=== PATIENT | female | born 1995 | race African-American/Black ===

== ENCOUNTER 2016-06-27 21:03 | Observation (INO) | payer OTHER ==
[2016-03-07 14:57] VITALS: BP 117/69
[~2016-06-27 21:03] MED LIST: CEPH-264 PO; PRED20TA PO
[2016-06-27 21:36] LABS: BILIRUBIN,URINE NEGATIVE (NEG); GLUCOSE,URINE NEGATIVE (NEG); NITRITE,URINE NEGATIVE (NEG); PROTEIN,URINE NEGATIVE (NEG-TRACE)
[2016-06-27 21:41] LABS: BARBITURATES NEG (NEG); BENZODIAZEPINES NEG (NEG); CANNABINOIDS NEG (NEG); COCAINE NEG (NEG); ETHANOL, URINE NEG (NEG); METHADONE NEG (NEG); OPIATES NEG (NEG); PHENCYCLIDINE NEG (NEG)
[2016-06-27 21:42] LABS: BACTERIA,URINE FEW /HPF (0-FEW); RBC,URINE 0 /HPF (0-2); SQUAMOUS EPITHELIAL CELL,UR MOD /LPF; YEAST,URINE PRESENT /HPF
== END 2016-06-27 23:29 | disposition home or self-care (01) ==
LOC: 3 SO LND 21:03
PROVIDERS: ADMIT Obstetrics & Gynecology; ATTEND Obstetrics & Gynecology
DX: O26.893 Other specified pregnancy related conditions, third trimester (principal); N89.8 Other specified noninflammatory disorders of vagina; R10.2 Pelvic and perineal pain; Z3A.32 32 weeks gestation of pregnancy
CPT/HCPCS: 81001; 87086; G0378; G0379; G0481

== ENCOUNTER → 2017-10-29 | Outpatient (CLI) | payer OTHER | END | disposition home or self-care (01) | LOC: US 09:20 | DX: Z36.9 Encounter for antenatal screening, unspecified (principal); O26.842 Uterine size-date discrepancy, second trimester; N91.2 Amenorrhea, unspecified; Z3A.23 23 weeks gestation of pregnancy | CPT/HCPCS: 76805 ==

== ENCOUNTER 2017-12-23 12:16 | Emergency (ER) | payer OTHER ==
[2017-12-23 13:13] LABS: BILIRUBIN,URINE NEGATIVE (NEG); CLARITY,URINE CLEAR; COLOR,URINE YELLOW; GLUCOSE,URINE NEGATIVE (NEG); NITRITE,URINE NEGATIVE (NEG); PH,URINE 6.5; PROTEIN,URINE NEGATIVE (NEG-TRACE)
[2017-12-23 13:35] LABS: BACTERIA,URINE FEW /HPF (0-FEW); SQUAMOUS EPITHELIAL CELL,UR FEW /LPF
[2017-12-27 08:48] LABS: URINE HCG POC HCG POSITIVE (Negative)
== END 2017-12-23 13:05 | disposition short-term general hospital (02) ==
LOC: ER 13:05
DX: R10.9 Unspecified abdominal pain (principal)
CPT/HCPCS: 81001; 81025; 99283; 99285

== ENCOUNTER 2017-12-23 13:06 | Observation (INO) | payer OTHER ==
[2017-12-23] MEDS ORDERED: IV RINGERS,LACTATED 1000ML 1,000 ML IV (13:42)
[2017-12-23 14:37] LABS: BILIRUBIN,URINE NEGATIVE (NEG); CLARITY,URINE CLEAR; COLOR,URINE YELLOW; GLUCOSE,URINE NEGATIVE (NEG); NITRITE,URINE NEGATIVE (NEG); PH,URINE 6.5; PROTEIN,URINE NEGATIVE (NEG-TRACE)
[2017-12-23 14:56] LABS: BACTERIA,URINE MODERATE /HPF (0-FEW); RBC,URINE 0 /HPF (0-2); SQUAMOUS EPITHELIAL CELL,UR MOD /LPF
[2017-12-23 14:57] LABS: YEAST,URINE PRESENT /HPF
== END 2017-12-23 14:55 | disposition home or self-care (01) ==
LOC: 3 SO LND 13:06
DX: O26.893 Other specified pregnancy related conditions, third trimester (principal); R10.9 Unspecified abdominal pain; Z3A.30 30 weeks gestation of pregnancy
CPT/HCPCS: 81001; 87086; G0378; G0379

== ENCOUNTER 2018-02-06 03:21 | Emergency (ER) | payer OTHER ==
[~2018-02-06] VITALS: Ht 157.5 cm; Wt 101.2 kg
--- NOTE | 2018-02-06 03:45 | PHYS DOC ---
Past Medical History Past Medical History: Sickle Cell Disease Past Surgical History: No Surgical History Alcohol Use: None Drug Use: None Adult General Chief Complaint Chief Complaint: CHEST PAIN HPI HPI Patient is a 22 year old female brought in by ambulance with pleuritic central chest pain. She was 36 weeks this woke her from sleep approximately 1 hour prior to arrival. in fact she said it woke her up at 219 am She describes central chest pain sharp worse with deep breathing and then she said she felt it radiates both to both sides of her chest into her rib area and then into her back and she was trying to find a comfortable position but rolling over seemed to make it worse touching the area seemed to make them worse. So she called 911 and she then ambulated into the emergency room with the paramedics. Her mother thought she was having a heart attack. Review of Systems Review of Systems Constitutional: Denies fever or chills [] Eyes: Denies change in visual acuity, redness, or eye pain [] HENT: Denies nasal congestion or sore throat [] Respiratory: Thorax mild shortness of breath feels like "gulping" for air Cardiovascular: No additional information not addressed in HPI [] GI: neg for abdo pain or vomiting. neg for vaginal discahrge or bleeding. neg for cramping. Musculoskeletal:positive for back pain Integument: Denies rash or skin lesions [] Neurologic: Denies headache, focal weakness or sensory changes [] Endocrine: Denies polyuria or polydipsia [] All other systems were reviewed and found to be within normal limits, except as documented in this note. Current Medications Current Medications Current Medications Medications (Trade) Dose Ordered Sig/Dominique Start Time Stop Time Status Last Admin Dose Admin Acetaminophen (Tylenol) 1,000 mg 1X ONCE 02/06/18 04:00 02/06/18 04:01 DC 02/06/18 04:11 1,000 MG Multi-Ingredient Mouthwash/Gargle (Gi Cocktail) 20 ml 1X ONCE 02/06/18 04:00 02/06/18 04:01 DC 02/06/18 04:11 20 ML Allergies Allergies Allergies Coded Allergies Type Severity Reaction Last Updated Verified No Known Drug Allergies 07/01/14 No Physical Exam Physical Exam Constitutional: Well developed, well nourished, mild distress, non-toxic appearance. [] HENT: Normocephalic, atraumatic, bilateral external ears normal, oropharynx moist, no oral exudates, nose normal. [] Eyes: PERRLA, EOMI, conjunctiva normal, no discharge. [] Neck: Normal range of motion, no tenderness, supple, no stridor. [] Cardiovascular:Heart rate regular rhythm, no murmur [] Lungs & Thorax: Bilateral breath sounds clear to auscultation [] there is reproducible chest wall tenderness to palpation in the anterior sternal area. Abdomen: Bowel sounds normal,gravuid but nontender Skin: Warm, dry, no erythema, no rash. [] Back: there is mid upper thoracic reproducible ttp noted in the paraspinous area bilaterally patient winces when touched. Extremities: No tenderness, no cyanosis, no clubbing, ROM intact, no edema. no calf ttp or swelling noted. Neurologic: Alert and oriented X 3, normal motor function, normal sensory function, no focal deficits noted. [] Psychologic: Affect normal, judgement normal, mood normal. [] Current Patient Data Vital Signs Vital Signs Date Time Temp Pulse Resp B/P (MAP) Pulse Ox O2 Delivery O2 Flow Rate FiO2 02/06/18 04:00 79 20 126/64 (84) 100 Room Air 02/06/18 03:21 98.5 98.5 Lab Values Laboratory Tests Test 02/06/18 03:55 White Blood Count 10.4 x10^3/uL (4.0-11.0) Red Blood Count 4.38 x10^6/uL (3.50-5.40) Hemoglobin 9.5 g/dL (12.0-15.5) L Hematocrit 28.8 % (36.0-47.0) L Mean Corpuscular Volume 66 fL (79-100) L Mean Corpuscular Hemoglobin 22 pg (25-35) L Mean Corpuscular Hemoglobin Concent 33 g/dL (31-37) Red Cell Distribution Width 14.9 % (11.5-14.5) H Platelet Count 166 x10^3/uL (140-400) Neutrophils (%) (Auto) 69 % (31-73) Lymphocytes (%) (Auto) 20 % (24-48) L Monocytes (%) (Auto) 9 % (0-9) Eosinophils (%) (Auto) 1 % (0-3) Basophils (%) (Auto) 1 % (0-3) Neutrophils # (Auto) 7.2 x10^3uL (1.8-7.7) Lymphocytes # (Auto) 2.1 x10^3/uL (1.0-4.8) Monocytes # (Auto) 1.0 x10^3/uL (0.0-1.1) Eosinophils # (Auto) 0.1 x10^3/uL (0.0-0.7) Basophils # (Auto) 0.1 x10^3/uL (0.0-0.2) Platelet Estimate Pending Sodium Level 139 mmol/L (136-145) Potassium Level 3.7 mmol/L (3.5-5.1) Chloride Level 106 mmol/L (98-107) Carbon Dioxide Level 21 mmol/L (21-32) Anion Gap 12 (6-14) Blood Urea Nitrogen 6 mg/dL (7-20) L Creatinine 0.5 mg/dL (0.6-1.0) L Estimated GFR (Cockcroft-Gault) 188.5 BUN/Creatinine Ratio 12 (6-20) Glucose Level 109 mg/dL (70-99) H Calcium Level 9.0 mg/dL (8.5-10.1) Total Bilirubin 0.2 mg/dL (0.2-1.0) Aspartate Amino Transferase (AST) 12 U/L (15-37) L Alanine Aminotransferase (ALT) 11 U/L (14-59) L Alkaline Phosphatase 119 U/L (46-116) H Troponin I Quantitative < 0.017 ng/mL (0.000-0.055) XL-Sad-I-Type Natriuretic Peptide 40 pg/mL (0-124) Total Protein 6.5 g/dL (6.4-8.2) Albumin 2.5 g/dL (3.4-5.0) L Albumin/Globulin Ratio 0.6 (1.0-1.7) L Laboratory Tests 02/06/18 03:55 Laboratory Tests 02/06/18 03:55 EKG EKG [] Interpretation Time: Normal sinus rhythm rate of [address] changes anteriorly no obvious STEMI was identified. Radiology/Procedures Radiology/Procedures [] Impressions: my read no definite pathology poor inspiration somehwat limits evaluation but mediastinum appears normal Course & Med Decision Making Course & Med Decision Making Pertinent Labs and Imaging studies reviewed. (See chart for details) []This is a 22-year-old female is presenting to the emergency room brought in by ambulance with chest pain and back pain. She is 36 weeks . This pain started fairly suddenly. It is reproducible on examination. It is worse when she twists or moves around. Initially we started with some basic lab work EKG showed just nonspecific changes chest x-ray no definite pathology patient had no tachycardia and no hypoxia blood pressure was in the 120 systolic. On my reevaluation after a dose of Tylenol and GI cocktail., At 4:40 AM patient is now having lumbar back pain that she describes as cramping fairly constant but does seem to come in waves. Nursing staff did notice some tightening of the abdomen as well. Patient has had no vaginal leak of fluid or bleeding that she knows about. Due to this change in her symptoms, we have called the L&D nurses and she will be wheeled up there for triage and further evaluation the heart tones here were in the 140s. I think due to the fact the chest pain is gone away the possibility of a PE given the fact that there is no hypoxia there is now resolved chest pain after a dose of Tylenol there is no tachycardia and her primary complaint on reevaluation his low back pain that PE for all those reasons seems very unlikely I think is more important to rule out active labor at this time. Dragon Disclaimer Dragon Disclaimer This electronic medical record was generated, in whole or in part, using a voice recognition dictation system. Departure Departure Impression: Primary Impression: Low back pain Disposition: 01 HOME, SELF-CARE Condition: STABLE Referrals: NO PCP (PCP) ECHO JOHNSON MD Feb 06, 2018 03:45
[2018-02-06 04:00] VITALS: BP 126/64
[2018-02-06] MEDS ORDERED: LIDO:MAALOX 1:1 20 ML SINGLE DOSE. SWSW ONE (04:00)
[2018-02-06] MEDS ORDERED: ACETAMINOPHEN 500 MG TABLET PO ONE (04:00)
[2018-02-06 04:03] LABS: BASO # 0.1 x10^3/uL (0.0-0.2); BASO % 1 % (0-3); EOS # 0.1 x10^3/uL (0.0-0.7); EOS % 1 % (0-3); HEMATOCRIT 28.8 % (36.0-47.0); HEMOGLOBIN 9.5 g/dL (12.0-15.5); LYMPH # 2.1 x10^3/uL (1.0-4.8); LYMPH % 20 % (24-48); MEAN CORPUSCULAR HEMOGLOBIN 22 pg (25-35); MEAN CORPUSCULAR HGB CONC 33 g/dL (31-37); MEAN CORPUSCULAR VOLUME 66 fL (79-100); MONO % 9 % (0-9); NEUT # 7.2 x10^3uL (1.8-7.7); NEUT % 69 % (31-73); PLATELET COUNT 166 x10^3/uL (140-400); RED BLOOD COUNT 4.38 x10^6/uL (3.50-5.40); RED CELL DISTRIBUTION WIDTH 14.9 % (11.5-14.5); WHITE BLOOD COUNT 10.4 x10^3/uL (4.0-11.0)
--- NOTE | 2018-02-06 04:13 | EKG ---
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
[2018-02-06 04:22] LABS: CREATININE 0.5 mg/dL (0.6-1.0); GFR 188.5; POTASSIUM 3.7 mmol/L (3.5-5.1)
[2018-02-06 04:28] LABS: ALBUMIN 2.5 g/dL (3.4-5.0); ALBUMIN/GLOBULIN RATIO 0.6 (1.0-1.7); TOTAL BILIRUBIN 0.2 mg/dL (0.2-1.0); TOTAL PROTEIN 6.5 g/dL (6.4-8.2)
[2018-02-06 05:03] LABS: PROTHROMBIN TIME PATIENT 12.5 SEC (11.7-14.0)
--- NOTE | 2018-02-06 08:03 | RAD ---
Portable chest, 02/06/2018: HISTORY: Chest pain The left ventricle is prominent. The pulmonary vascularity is normal. No pulmonary infiltrate is seen. There is no evidence of pleural fluid. IMPRESSION: No acute cardiopulmonary abnormality is detected. Electronically signed by: Oli Drummond MD (02/06/2018 8:01 AM) [facility]
[2018-02-06 10:09] LABS: ANISOCYTOSIS SLIGHT; HYPOCHROMIA MOD; MICROCYTOSIS MOD; PLT ESTIMATE ADEQUATE (ADEQUATE); POIKILOCYTOSIS SLIGHT
== END 2018-02-06 05:12 | disposition home or self-care (01) ==
LOC: ER 03:21
DX: O26.893 Other specified pregnancy related conditions, third trimester (principal); M54.5 Low back pain; R07.1 Chest pain on breathing; Z86.2 Personal history of diseases of the blood and blood-forming organs and certain disorders involving the immune mechanism; Z3A.36 36 weeks gestation of pregnancy
CPT/HCPCS: 36415; 71045; 80053; 83880; 84484; 85025; 85610; 93005; 99285-25

== ENCOUNTER 2018-02-06 04:51 | Observation (INO) | payer OTHER ==
[2018-02-06 04:00] VITALS: BP 126/64
[2018-02-06] MEDS ORDERED: ONDANSETRON PF 4 MG/2 ML VIAL. IV PRN (05:00)
[2018-02-06] MEDS ORDERED: ACETAMINOPHEN 325 MG TABLET. PO PRN (05:00)
[2018-02-06] MEDS ORDERED: IV RINGERS,LACTATED 1000ML 1,000 ML IV SCH (05:30)
[2018-02-06 07:01] LABS: BILIRUBIN,URINE NEGATIVE (NEG); CLARITY,URINE CLEAR; COLOR,URINE YELLOW; NITRITE,URINE NEGATIVE (NEG); PH,URINE 6.5; PROTEIN,URINE NEGATIVE (NEG-TRACE)
[2018-02-06 07:03] LABS: BACTERIA,URINE FEW /HPF (0-FEW); RBC,URINE 0 /HPF (0-2); SQUAMOUS EPITHELIAL CELL,UR MANY /LPF
== END 2018-02-06 07:30 | disposition home or self-care (01) ==
LOC: 3 SO LND 04:51
PROVIDERS: ADMIT Obstetrics & Gynecology; ATTEND Obstetrics & Gynecology
DX: O26.893 Other specified pregnancy related conditions, third trimester (principal); R07.9 Chest pain, unspecified; Z3A.36 36 weeks gestation of pregnancy; Z79.899 Other long term (current) drug therapy
CPT/HCPCS: 81001; 87086; G0378; G0379

== ENCOUNTER 2018-03-03 12:31 | Emergency (ER) | payer OTHER ==
[~2018-03-03] VITALS: Ht 165.1 cm; Wt 103.4 kg
[~2018-03-03 12:31] MED LIST changes: +DOCU-109 PO; +IBUP800T19 PO; +OXYC1TAB7 PO
[2018-03-03 13:54] VITALS: BP 114/73
[2018-03-03] MEDS ORDERED: MUPI15CR TP (14:04)
--- NOTE | 2018-03-03 14:04 | PHYS DOC ---
Past Medical History Past Medical History: No Pertinent History, Sickle Cell Disease Past Surgical History: Additional Past Surgical Histo: X 1 Alcohol Use: None Drug Use: None Adult General Chief Complaint Chief Complaint: FACE PROBLEM HPI HPI 22 y.o female presents for eval of crusted lesion under the left side of her lower lip since Sunday. She denies any other concerns Review of Systems Review of Systems Constitutional: Denies fever or chills [] Eyes: Denies change in visual acuity, redness, or eye pain [] HENT: Denies nasal congestion or sore throat [] Neurologic: Denies headache, focal weakness or sensory changes [] Endocrine: Denies polyuria or polydipsia [] All other systems were reviewed and found to be within normal limits, except as documented in this note. Allergies Allergies Allergies Coded Allergies Type Severity Reaction Last Updated Verified No Known Drug Allergies 07/01/14 No Physical Exam Physical Exam Constitutional: Well developed, well nourished, no acute distress, non-toxic appearance. [] HENT: Normocephalic, atraumatic Skin: yellow crusted lesion under lower lip on left side consistent c impetigo] Neurologic: Alert and oriented X 3, normal motor function, normal sensory function, no focal deficits noted. [] Psychologic: Affect normal, judgement normal, mood normal. [] Current Patient Data Vital Signs Vital Signs Date Time Temp Pulse Resp B/P (MAP) Pulse Ox O2 Delivery O2 Flow Rate FiO2 03/03/18 13:54 99.3 85 18 114/73 (87) 100 Room Air 99.3 114/73 (87) EKG EKG [] Radiology/Procedures Radiology/Procedures [] Course & Med Decision Making Course & Med Decision Making pt was started on bactroban for impetigo, f/u c pcp in 2-3 days, return to ED for new or worsening symptoms [] Dragon Disclaimer Dragon Disclaimer This electronic medical record was generated, in whole or in part, using a voice recognition dictation system. Departure Departure Impression: Primary Impression: Impetigo Disposition: 01 HOME, SELF-CARE Condition: STABLE Referrals: NO PCP (PCP) Patient Instructions: Impetigo Scripts Mupirocin Calcium (BACTROBAN CREAM) 15 Gm Cream..g. 1 TAE TP TID for 10 Days, #30 EACH 0 Refills Prov: REFFITT,TRES M JOB MOLDER 03/03/18 TRES CATES APRN Mar 03, 2018 14:04
== END 2018-03-03 14:23 | disposition home or self-care (01) ==
LOC: ER 12:31
DX: L01.00 Impetigo, unspecified (principal); K13.0 Diseases of lips
CPT/HCPCS: 99283

== ENCOUNTER 2018-04-13 21:33 | Emergency (ER) | payer OTHER ==
[~2018-04-13] VITALS: Ht 157.5 cm; Wt 90.7 kg
[~2018-04-13 21:33] MED LIST changes: +MUPI15CR TP
[2018-04-13] MEDS ORDERED: IV NORMAL SALINE 1000ML BAG 1,000 ML IV ONE (23:00)
--- NOTE | 2018-04-13 23:04 | PHYS DOC ---
Past Medical History Past Medical History: No Pertinent History, Sickle Cell Disease Past Surgical History: Additional Past Surgical Histo: X 1 Alcohol Use: None Drug Use: None Adult General Chief Complaint Chief Complaint: CHEST PAIN HPI HPI 22-year-old female presents with report of midsternal chest discomfort 2 weeks. Reports worse today with associated palpitations. Patient does report radiation to her back. Reports worse with movement and twisting. Denies pleuritic pain. Denies leg swelling or calf tenderness. Denies history of DVT/ PE. Patient does report history of recent 1 month ago. Denies cardiac risk factors. Review of Systems Review of Systems Constitutional: Denies fever or chills [] Eyes: Denies change in visual acuity, redness, or eye pain [] HENT: Denies nasal congestion or sore throat [] Respiratory: Denies cough or shortness of breath [] Cardiovascular: reports chest pain and palpitations GI: Denies abdominal pain, nausea, vomiting, or diarrhea [] : Denies dysuria or Musculoskeletal: Denies back pain or leg pain/swelling [] Integument: Denies rash or skin lesions [] Neurologic: Denies headache, focal weakness or sensory changes [] Complete systems were reviewed and found to be within normal limits, except as documented in this note. Current Medications Current Medications Current Medications Medications (Trade) Dose Ordered Sig/Dominique Start Time Stop Time Status Last Admin Dose Admin Ceftriaxone Sodium 50 ml @ 100 mls/hr 1X ONCE 04/14/18 00:30 04/14/18 00:59 DC 04/14/18 00:30 100 MLS/HR Ketorolac Tromethamine (Toradol 15mg Vial) 15 mg 1X ONCE 04/14/18 00:30 04/14/18 00:31 DC 04/14/18 00:30 15 MG Orphenadrine Citrate (Norflex) 60 mg 1X ONCE 04/14/18 00:30 04/14/18 00:31 DC 04/14/18 00:30 60 MG Sodium Chloride 1,000 ml @ 1,000 mls/hr 1X ONCE 04/13/18 23:00 04/13/18 23:59 DC 04/13/18 23:15 1,000 MLS/HR Allergies Allergies Allergies Coded Allergies Type Severity Reaction Last Updated Verified No Known Drug Allergies 07/01/14 No Physical Exam Physical Exam Constitutional: Well developed, well nourished, no acute distress, non-toxic appearance. [] HENT: Normocephalic, atraumatic. [] Eyes: PERRL, EOMI, conjunctiva normal, no discharge. [] Neck: Normal range of motion, no midline tenderness, supple, no stridor. [] Cardiovascular: Heart rate regular rhythm, no murmur [] Lungs & Thorax: Bilateral breath sounds clear to auscultation [] Abdomen: Soft, no tenderness Skin: Warm, dry, no erythema, no rash. [] Extremities: No calf tenderness, ROM intact, no edema. [] Neurologic: Alert and oriented X 3, normal motor function, normal sensory function, no focal deficits noted. [] Psychologic: Affect normal, judgement normal, mood normal. [] Current Patient Data Vital Signs Vital Signs Date Time Temp Pulse Resp B/P (MAP) Pulse Ox O2 Delivery O2 Flow Rate FiO2 04/14/18 02:00 64 18 119/71 (87) 100 Room Air 04/13/18 21:40 98.5 98.5 Lab Values Laboratory Tests Test 04/13/18 23:09 04/13/18 23:13 04/13/18 23:15 04/14/18 01:00 White Blood Count 8.4 x10^3/uL (4.0-11.0) Red Blood Count 4.75 x10^6/uL (3.50-5.40) Hemoglobin 10.1 g/dL (12.0-15.5) L Hematocrit 30.8 % (36.0-47.0) L Mean Corpuscular Volume 65 fL (79-100) L Mean Corpuscular Hemoglobin 21 pg (25-35) L Mean Corpuscular Hemoglobin Concent 33 g/dL (31-37) Red Cell Distribution Width 16.9 % (11.5-14.5) H Platelet Count 225 x10^3/uL (140-400) Neutrophils (%) (Auto) 58 % (31-73) Lymphocytes (%) (Auto) 33 % (24-48) Monocytes (%) (Auto) 6 % (0-9) Eosinophils (%) (Auto) 3 % (0-3) Basophils (%) (Auto) 1 % (0-3) Neutrophils # (Auto) 4.9 x10^3uL (1.8-7.7) Lymphocytes # (Auto) 2.8 x10^3/uL (1.0-4.8) Monocytes # (Auto) 0.5 x10^3/uL (0.0-1.1) Eosinophils # (Auto) 0.2 x10^3/uL (0.0-0.7) Basophils # (Auto) 0.1 x10^3/uL (0.0-0.2) Urine Collection Type Unknown Urine Color Yellow Urine Clarity Clear Urine pH 6.0 Urine Specific [place] 1.025 Urine Protein Negative mg/dL (NEG-TRACE) Urine Glucose (UA) Negative mg/dL (NEG) Urine Ketones (Stick) Negative mg/dL (NEG) Urine Blood Negative (NEG) Urine Nitrite Negative (NEG) Urine Bilirubin Negative (NEG) Urine Urobilinogen Dipstick 1.0 mg/dL (0.2 mg/dL) Urine Leukocyte Esterase Small (NEG) Urine RBC 6-10 /HPF (0-2) Urine WBC >40 /HPF (0-4) Urine Squamous Epithelial Cells Few /LPF Urine Bacteria Few /HPF (0-FEW) Sodium Level 143 mmol/L (136-145) Potassium Level 4.3 mmol/L (3.5-5.1) Chloride Level 108 mmol/L (98-107) H Carbon Dioxide Level 26 mmol/L (21-32) Anion Gap 9 (6-14) Blood Urea Nitrogen 11 mg/dL (7-20) Creatinine 0.8 mg/dL (0.6-1.0) Estimated GFR (Cockcroft-Gault) 109.6 BUN/Creatinine Ratio 14 (6-20) Glucose Level 93 mg/dL (70-99) Calcium Level 8.9 mg/dL (8.5-10.1) Magnesium Level 1.9 mg/dL (1.8-2.4) Total Bilirubin 0.2 mg/dL (0.2-1.0) Aspartate Amino Transferase (AST) 18 U/L (15-37) Alanine Aminotransferase (ALT) 10 U/L (14-59) L Alkaline Phosphatase 84 U/L (46-116) Creatine Kinase 79 U/L (26-192) Creatine Kinase MB (Mass) > 5.0 ng/mL (0.0-3.6) H Creatine Kinase MB Relative Index % (0-4) Troponin I Quantitative < 0.017 ng/mL (0.000-0.055) Total Protein 7.4 g/dL (6.4-8.2) Albumin 3.1 g/dL (3.4-5.0) L Albumin/Globulin Ratio 0.7 (1.0-1.7) L Lipase 130 U/L (73-393) POC Urine HCG, Qualitative Hcg negative (Negative) Platelet Estimate Adequate (ADEQUATE) Poikilocytosis Mod Anisocytosis Slight Microcytosis Mod Spherocytes Occ Target Cells Occ Tear Drop Cells Occ Ovalocytes Occ Rouleaux Present Prothrombin Time 13.9 SEC (11.7-14.0) Prothrombin Time INR 1.1 (0.8-1.1) D-Dimer (Beth) 0.39 ug/mlFEU (0.00-0.50) Laboratory Tests 04/13/18 23:09 Laboratory Tests 04/13/18 23:09 EKG EKG @2142 Sinus bradycardia at 51bpm, NO ST elevation, nonspecific t wave inversion to V1-V3 Radiology/Procedures Radiology/Procedures 2 view CXR: (preliminary interpretation by ED physician): No acute process PROCEDURE: CHEST PA & LATERAL CHEST PA LATERAL Technique: PA and lateral views of the chest were obtained. Clinical History: CHEST PAIN Comparison: None. Findings: The heart and pulmonary vasculature appear within normal limits. The lungs are clear. The pleural margins are clear. Impression: No acute chest process is seen. Electronically signed by: Kameron Friend III, MD (04/14/2018 6:31 AM) [facility] Course & Med Decision Making Course & Med Decision Making Pertinent Labs and Imaging studies reviewed. (See chart for details) Patient presents with atypical chest pain. Patient low risk for CAD. PERC rule not satisfied due to patient's recent surgery. Labs obtained and posted to chart. Troponin WNL. HEART score: 0. D-dimer also WNL. CXR without acute process. UA with signs of infection. Empiric antibiotics given. Symptomatic treatment provided with interval improvement of symptoms. Patient stable for discharge with outpatient follow-up with PCP. Discussed findings and plan with patient and friend, who acknowledge understanding and agreement. [employer] voice recognition software utilized. [employer] Disclaimer [employer] Disclaimer This electronic medical record was generated, in whole or in part, using a voice recognition dictation system. Departure Departure Impression: Primary Impression: Chest pain Additional Impression: UTI (urinary tract infection) Disposition: 01 HOME, SELF-CARE Condition: STABLE Referrals: NO PCP (PCP) DIANNA MORGAN MD Patient Instructions: Chest Pain (Nonspecific), [id number], Urinary Tract Infection, [id number] Scripts Cephalexin (KEFLEX) 500 Mg Capsule 500 MG PO TID for 7 Days, #21 CAP Prov: WESLEY LYONS DO 04/14/18 Orphenadrine Citrate (ORPHENADRINE CITRATE) 100 Mg Tablet.er 100 MG PO BID PRN for MUSCLE PAIN, #14 Prov: WESLEY LYONS DO 04/14/18 Naproxen (NAPROXEN) 500 Mg Tablet 1 TAB PO BID PRN for PAIN, #20 TAB 0 Refills Prov: WESLEY LYONS DO 04/14/18 Problem Qualifiers Primary Impression: Chest pain Chest pain type: unspecified Qualified Codes: R07.9 - Chest pain, unspecified Additional Impression: UTI (urinary tract infection) Urinary tract infection type: acute cystitis Hematuria presence: without hematuria Qualified Codes: N30.00 - Acute cystitis without hematuria WESLEY LYONS DO Apr 13, 2018 23:04
[2018-04-13 23:31] LABS: BASO # 0.1 x10^3/uL (0.0-0.2); BASO % 1 % (0-3); EOS # 0.2 x10^3/uL (0.0-0.7); EOS % 3 % (0-3); HEMATOCRIT 30.8 % (36.0-47.0); HEMOGLOBIN 10.1 g/dL (12.0-15.5); LYMPH # 2.8 x10^3/uL (1.0-4.8); LYMPH % 33 % (24-48); MEAN CORPUSCULAR HEMOGLOBIN 21 pg (25-35); MEAN CORPUSCULAR HGB CONC 33 g/dL (31-37); MEAN CORPUSCULAR VOLUME 65 fL (79-100); MONO # 0.5 x10^3/uL (0.0-1.1); MONO % 6 % (0-9); NEUT # 4.9 x10^3uL (1.8-7.7); NEUT % 58 % (31-73); PLATELET COUNT 225 x10^3/uL (140-400); RED BLOOD COUNT 4.75 x10^6/uL (3.50-5.40); RED CELL DISTRIBUTION WIDTH 16.9 % (11.5-14.5); WHITE BLOOD COUNT 8.4 x10^3/uL (4.0-11.0)
[2018-04-13 23:40] LABS: BILIRUBIN,URINE NEGATIVE (NEG); CLARITY,URINE CLEAR; COLOR,URINE YELLOW; NITRITE,URINE NEGATIVE (NEG); PROTEIN,URINE NEGATIVE (NEG-TRACE)
[2018-04-13 23:51] LABS: CALCIUM 8.9 mg/dL (8.5-10.1); CREATININE 0.8 mg/dL (0.6-1.0); GFR 109.6; POTASSIUM 4.3 mmol/L (3.5-5.1)
[2018-04-13 23:56] LABS: ALBUMIN 3.1 g/dL (3.4-5.0); ALBUMIN/GLOBULIN RATIO 0.7 (1.0-1.7); MAGNESIUM 1.9 mg/dL (1.8-2.4); TOTAL BILIRUBIN 0.2 mg/dL (0.2-1.0); TOTAL PROTEIN 7.4 g/dL (6.4-8.2)
[2018-04-13 23:58] LABS: BACTERIA,URINE FEW /HPF (0-FEW); SQUAMOUS EPITHELIAL CELL,UR FEW /LPF; WBC,URINE >40 /HPF (0-4)
[2018-04-14 00:20] LABS: CREATINE KINASE 79 U/L (26-192)
[2018-04-14] MEDS ORDERED: ORPHENADRINE CITRATE 60 MG/2 ML VIAL. IV ONE (00:30)
[2018-04-14] MEDS ORDERED: KETOROLAC 15 MG/ML VIAL. IV ONE (00:30)
[2018-04-14 01:24] LABS: PROTHROMBIN TIME PATIENT 13.9 SEC (11.7-14.0)
[2018-04-14 01:34] LABS: D-DIMER 0.39 ug/mlFEU (0.00-0.50)
--- NOTE | 2018-04-14 01:58 | EKG ---
[facility] [address] [place] [address] Test Date: 2018-04-13 Test Time: 21:42:08 Pat Name: DANDY BORJAS Department: Room: Gender: F Runner Out: : 1995 Requested By: WESLEY LYONS Order Number: [id number] Reading MD: Measurements Intervals [place] Rate: 51 P: 56 [place]: 158 QRS: 15 QRSD: 104 T: 6 QT: 424 QTc: 393 Interpretive Statements SINUS RHYTHM NO SPECIFIC ECG ABNORMALITIES RI6.01 No previous ECG available for comparison
[2018-04-14 02:00] VITALS: BP 119/71
[2018-04-14 02:11] LABS: PLT ESTIMATE ADEQUATE (ADEQUATE)
[2018-04-14] MEDS ORDERED: ORPH100T PO (02:12)
[2018-04-14] MEDS ORDERED: NAPR-514 PO (02:12)
[2018-04-14] MEDS ORDERED: CEPH-264 PO (02:14)
[2018-04-14 02:17] LABS: ANISOCYTOSIS SLIGHT; OVALOCYTES OCC; POIKILOCYTOSIS MOD; ROULEAUX PRESENT; SPHEROCYTES OCC; TARGET CELLS OCC; TEAR DROP CELLS OCC
[2018-04-14 02:18] LABS: MICROCYTOSIS MOD
--- NOTE | 2018-04-14 06:34 | RAD ---
CHEST PA LATERAL Technique: PA and lateral views of the chest were obtained. Clinical History: CHEST PAIN Comparison: None. Findings: The heart and pulmonary vasculature appear within normal limits. The lungs are clear. The pleural margins are clear. Impression: No acute chest process is seen. Electronically signed by: Kameron Friend III, MD (04/14/2018 6:31 AM) [facility]
== END 2018-04-14 02:30 | disposition home or self-care (01) ==
LOC: ER 21:33
DX: N30.00 Acute cystitis without hematuria (principal); R07.2 Precordial pain; R00.2 Palpitations
CPT/HCPCS: 36415; 71046; 80053; 81001; 81025; 82553; 83690; 83735; 84484; 85025; 85379; 85610; 87086; 93005; 96365; 96375; 99285; J0690; J1885; J2360; J7030

== ENCOUNTER 2018-05-23 13:47 | Emergency (ER) | payer OTHER ==
[~2018-05-23] VITALS: Ht 157.5 cm; Wt 90.7 kg
[~2018-05-23 13:47] MED LIST changes: +NAPR-514 PO; +ORPH100T PO
[2018-05-23 14:02] VITALS: BP 135/79
[2018-05-23] MEDS ORDERED: ONDANSETRON ODT 4 MG TAB.RAPDIS. PO ONE (14:30)
[2018-05-23] MEDS ORDERED: DICYCLOMINE HCL 10 MG CAPSULE PO ONE (14:30)
[2018-05-23 14:40] LABS: BILIRUBIN,URINE MODERATE (NEG); CLARITY,URINE CLEAR; COLOR,URINE AMBER; NITRITE,URINE NEGATIVE (NEG); PROTEIN,URINE NEGATIVE (NEG-TRACE); UROBILINOGEN,URINE 0.2 mg/dL (0.2 mg/dL)
[2018-05-23 14:59] LABS: BACTERIA,URINE MODERATE /HPF (0-FEW); SQUAMOUS EPITHELIAL CELL,UR MANY /LPF
[2018-05-23 15:00] LABS: RBC,URINE OCC /HPF (0-2)
[2018-05-23] MEDS ORDERED: DICY20TA3 PO (15:18)
[2018-05-23] MEDS ORDERED: ONDA4TAB7 PO (15:18)
[2018-05-23] MEDS ORDERED: CEPH500T PO (15:18)
--- NOTE | 2018-05-23 15:18 | PHYS DOC ---
Past Medical History Past Medical History: No Pertinent History, Sickle Cell Disease Past Surgical History: Additional Past Surgical Histo: X 1 Alcohol Use: None Drug Use: None Adult General Chief Complaint Chief Complaint: NAUSEA/VOMITING/DIARRHA HPI HPI Patient is a 23 year old female with no significant medical history who presents with intermittent episodes of nausea for 2 weeks. She states yesterday she had diarrhea. She states her urine is darker than normal. Patient denies any abdominal pain. Denies any back pain. Denies any fever. Denies any hematemesis or melena. Review of Systems Review of Systems Constitutional: Denies fever or chills [] Eyes: Denies change in visual acuity, redness, or eye pain [] HENT: Denies nasal congestion or sore throat [] Respiratory: Denies cough or shortness of breath [] Cardiovascular: No additional information not addressed in HPI [] GI: Reports nausea and diarrhea. Denies abdominal pain, vomiting, bloody stools : Reports dark urine. Denies dysuria or hematuria [] Musculoskeletal: Denies back pain or joint pain [] Integument: Denies rash or skin lesions [] Neurologic: Denies headache, focal weakness or sensory changes [] All other systems were reviewed and found to be within normal limits, except as documented in this note. Current Medications Current Medications Current Medications Medications (Trade) Dose Ordered Sig/Dominique Start Time Stop Time Status Last Admin Dose Admin Dicyclomine HCl (Bentyl) 20 mg 1X ONCE 05/23/18 14:30 05/23/18 14:32 DC 05/23/18 14:37 20 MG Ondansetron HCl (Zofran Odt) 4 mg 1X ONCE 05/23/18 14:30 05/23/18 14:32 DC 05/23/18 14:37 4 MG Allergies Allergies Allergies Coded Allergies Type Severity Reaction Last Updated Verified No Known Drug Allergies 07/01/14 No Physical Exam Physical Exam Constitutional: Well developed, well nourished, no acute distress, non-toxic appearance. [] HENT: Normocephalic, atraumatic, bilateral external ears normal, oropharynx moist, no oral exudates, nose normal. [] Eyes: PERRLA, EOMI, conjunctiva normal, no discharge. [] Neck: Normal range of motion, no tenderness, supple, no stridor. [] Cardiovascular:Heart rate regular rhythm, no murmur [] Lungs & Thorax: Bilateral breath sounds clear to auscultation [] Abdomen: Bowel sounds normal, soft, no tenderness, no masses, no pulsatile masses. [] Skin: Warm, dry, no erythema, no rash. [] Back: No tenderness, no CVA tenderness. [] Extremities: No tenderness, no cyanosis, no clubbing, ROM intact, no edema. [] Neurologic: Alert and oriented X 3, normal motor function, normal sensory function, no focal deficits noted. [] Psychologic: Affect normal, judgement normal, mood normal. [] Current Patient Data Vital Signs Vital Signs Date Time Temp Pulse Resp B/P (MAP) Pulse Ox O2 Delivery O2 Flow Rate FiO2 05/23/18 14:02 98.3 71 16 135/79 (97) 99 Room Air 98.3 Lab Values Laboratory Tests Test 05/23/18 14:00 05/23/18 14:27 Urine Collection Type Void Urine Color Lore Urine Clarity Clear Urine pH 6.0 Urine Specific [place] 1.020 Urine Protein Negative mg/dL (NEG-TRACE) Urine Glucose (UA) Negative mg/dL (NEG) Urine Ketones (Stick) Negative mg/dL (NEG) Urine Blood Negative (NEG) Urine Nitrite Negative (NEG) Urine Bilirubin Moderate (NEG) Urine Urobilinogen Dipstick 0.2 mg/dL (0.2 mg/dL) Urine Leukocyte Esterase Large (NEG) Urine RBC Occ /HPF (0-2) Urine WBC 11-20 /HPF (0-4) Urine Squamous Epithelial Cells Many /LPF Urine Bacteria Moderate /HPF (0-FEW) Urine Mucus Mod /LPF POC Urine HCG, Qualitative Hcg negative (Negative) EKG EKG [] Radiology/Procedures Radiology/Procedures [] Course & Med Decision Making Course & Med Decision Making Pertinent Labs and Imaging studies reviewed. (See chart for details) This is a 23-year-old female patient presented to the ED today with nausea, diarrhea and dark urine. Urine analysis is noted for large amount of leukocytes , the bite appears contaminated with squamous cell epithelium patient will be treated with cephalexin. Discharged with Zofran and dicyclomine. Instructed to push fluids. Dragon Disclaimer Dragon Disclaimer This electronic medical record was generated, in whole or in part, using a voice recognition dictation system. Departure Departure Impression: Primary Impression: UTI (urinary tract infection) Additional Impressions: Diarrhea Nausea Disposition: 01 HOME, SELF-CARE Condition: STABLE Referrals: NO PCP (PCP) follow up with your doctor in 1-2 weeks Patient Instructions: Diarrhea, [id number], Nausea and Vomiting, [id number] , Urinary Tract Infection Additional Instructions: You were evaluated in the emergency room and noted to have urinary tract infection, diarrhea nausea. Take the prescribed medications as ordered. Push fluids, maintain good hand hygiene. Complete your antibiotics. Follow-up with your doctor in 1-2 weeks. Scripts Dicyclomine Hcl (DICYCLOMINE HCL) 20 Mg Tablet 1 TAB PO TID, #30 TAB 1 Refill Prov: MILLY STEVE APRN 05/23/18 Ondansetron Hcl (ZOFRAN) 4 Mg Tablet 1 TAB PO Q6HRS, #20 TAB Prov: MILLY STEVE APRN 05/23/18 Cephalexin (CEPHALEXIN) 500 Mg Tablet 1 TAB PO BID, #14 TAB Prov: MILLY STEVE APRN 05/23/18 Problem Qualifiers Primary Impression: UTI (urinary tract infection) Urinary tract infection type: site unspecified Hematuria presence: without hematuria Qualified Codes: N39.0 - Urinary tract infection, site not specified Additional Impressions: Diarrhea Diarrhea type: infectious Qualified Codes: A09 - Infectious gastroenteritis and colitis, unspecified MILLY STEVE APRN May 23, 2018 15:18
== END 2018-05-23 15:26 | disposition home or self-care (01) ==
LOC: ER 13:47
DX: N39.0 Urinary tract infection, site not specified (principal); A09 Infectious gastroenteritis and colitis, unspecified
CPT/HCPCS: 81001; 81025; 87086; 99283; Q0162

== ENCOUNTER 2018-06-10 20:59 | Emergency (ER) | payer OTHER ==
[~2018-06-10] VITALS: Ht 157.5 cm; Wt 90.7 kg
[~2018-06-10 20:59] MED LIST changes: +CEPH500T PO; +DICY20TA3 PO; +ONDA4TAB7 PO
--- NOTE | 2018-06-10 21:28 | PHYS DOC ---
Past Medical History Past Medical History: No Pertinent History, Sickle Cell Disease Past Surgical History: Additional Past Surgical Histo: X 1 Alcohol Use: None Drug Use: None Adult General Chief Complaint Chief Complaint: NAUSEA/VOMITING/DIARRHA HPI HPI Patient is a 23 year old female who presents with abdominal pain. This has been present intermittently for the past month. It has been migrating around. She was previously diagnosed with irritable bowel syndrome but says this is nothing like previous irritable bowel syndrome pain. Also notes that she's had intermittent red blood from her rectum both in the toilet bowl as well as on the toilet paper. Only associated with bowel movements, no other bleeding. No abnormal bruising. No recent changes in weight. Patient is approximately 2 months from a delivery without complications. Patient denies any fever. She notes that she has some nausea with the discomfort. Nothing seems to make the discomfort better or worse. The discomfort does not radiate anywhere. [] Review of Systems Review of Systems Constitutional: Denies fever or chills [] Eyes: Denies change in visual acuity, redness, or eye pain [] HENT: Denies nasal congestion or sore throat [] Respiratory: Denies cough or shortness of breath [] Cardiovascular: No chest pain or palpitations[] GI: See history of present illness[] : Denies dysuria or hematuria [] Musculoskeletal: Denies back pain or joint pain [] Integument: Denies rash or skin lesions [] Neurologic: Denies headache, focal weakness or sensory changes [] Endocrine: Denies polyuria or polydipsia [] All other systems were reviewed and found to be within normal limits, except as documented in this note. Current Medications Current Medications Current Medications Medications (Trade) Dose Ordered Sig/Dominique Start Time Stop Time Status Last Admin Dose Admin Hyoscyamine (Anaspaz) 0.125 mg ONCE ONCE 06/10/18 22:00 06/10/18 22:01 DC 06/10/18 22:16 0.125 MG Ondansetron HCl (Zofran Odt) 4 mg 1X ONCE 06/10/18 22:00 06/10/18 22:01 DC 06/10/18 21:51 4 MG Allergies Allergies Allergies Coded Allergies Type Severity Reaction Last Updated Verified No Known Drug Allergies 1/14/15 No Physical Exam Physical Exam Constitutional: Well developed, well nourished, no acute distress, non-toxic appearance. [] HENT: Normocephalic, atraumatic, bilateral external ears normal, oropharynx moist, no oral exudates, nose normal. [] Eyes: PERRLA, EOMI, conjunctiva normal, no discharge. [] Neck: Normal range of motion, no tenderness, supple, no stridor. [] Cardiovascular:Heart rate regular rhythm, no murmur [] Lungs & Thorax: Bilateral breath sounds clear to auscultation [] Abdomen: Bowel sounds normal, soft, mild diffuse tenderness, no rebound, no guarding, no rigidity. Patient sits up without difficulty. no masses, no pulsatile masses. Rectal exam performed with vision rehabilitation therapist: No external hemorrhoids or lesions noted. Brown stool obtained and sent for laboratory analysis. No gross bleeding. [] Skin: Warm, dry, no erythema, no rash. [] Back: No tenderness, no CVA tenderness. [] Extremities: No tenderness, no cyanosis, no clubbing, ROM intact, no edema. [] Neurologic: Alert and oriented X 3, normal motor function, normal sensory function, no focal deficits noted. [] Psychologic: Affect normal, judgement normal, mood normal. [] Current Patient Data Vital Signs Vital Signs Date Time Temp Pulse Resp B/P (MAP) Pulse Ox O2 Delivery O2 Flow Rate FiO2 06/10/18 21:00 98.3 69 16 140/71 (94) 98 Room Air 98.3 Lab Values Laboratory Tests Test 06/10/18 21:12 06/10/18 21:30 06/10/18 21:54 06/10/18 22:00 POC Urine HCG, Qualitative Hcg negative (Negative) Urine Collection Type Unknown Urine Color Yellow Urine Clarity Clear Urine pH 6.5 Urine Specific [place] 1.025 Urine Protein Negative mg/dL (NEG-TRACE) Urine Glucose (UA) Negative mg/dL (NEG) Urine Ketones (Stick) Negative mg/dL (NEG) Urine Blood Negative (NEG) Urine Nitrite Negative (NEG) Urine Bilirubin Negative (NEG) Urine Urobilinogen Dipstick 1.0 mg/dL (0.2 mg/dL) Urine Leukocyte Esterase Small (NEG) Urine RBC Rare /HPF (0-2) Urine WBC 1-4 /HPF (0-4) Urine Squamous Epithelial Cells Mod /LPF Urine Amorphous Sediment Present /HPF Urine Bacteria 0 /HPF (0-FEW) Urine Mucus Mod /LPF Stool Occult Blood Negative (NEG) White Blood Count 7.6 x10^3/uL (4.0-11.0) Red Blood Count 5.34 x10^6/uL (3.50-5.40) Hemoglobin 10.8 g/dL (12.0-15.5) L Hematocrit 34.4 % (36.0-47.0) L Mean Corpuscular Volume 64 fL (79-100) L Mean Corpuscular Hemoglobin 20 pg (25-35) L Mean Corpuscular Hemoglobin Concent 31 g/dL (31-37) Red Cell Distribution Width 16.8 % (11.5-14.5) H Platelet Count 196 x10^3/uL (140-400) Neutrophils (%) (Auto) 67 % (31-73) Lymphocytes (%) (Auto) 26 % (24-48) Monocytes (%) (Auto) 6 % (0-9) Eosinophils (%) (Auto) 0 % (0-3) Basophils (%) (Auto) 0 % (0-3) Neutrophils # (Auto) 5.1 x10^3uL (1.8-7.7) Lymphocytes # (Auto) 2.0 x10^3/uL (1.0-4.8) Monocytes # (Auto) 0.5 x10^3/uL (0.0-1.1) Eosinophils # (Auto) 0.0 x10^3/uL (0.0-0.7) Basophils # (Auto) 0.0 x10^3/uL (0.0-0.2) Platelet Estimate Pending Prothrombin Time 13.3 SEC (11.7-14.0) Prothrombin Time INR 1.0 (0.8-1.1) Sodium Level 139 mmol/L (136-145) Potassium Level 4.1 mmol/L (3.5-5.1) Chloride Level 104 mmol/L (98-107) Carbon Dioxide Level 25 mmol/L (21-32) Anion Gap 10 (6-14) Blood Urea Nitrogen 8 mg/dL (7-20) Creatinine 0.7 mg/dL (0.6-1.0) Estimated GFR (Cockcroft-Gault) 126.6 BUN/Creatinine Ratio 11 (6-20) Glucose Level 88 mg/dL (70-99) Calcium Level 9.2 mg/dL (8.5-10.1) Total Bilirubin 0.6 mg/dL (0.2-1.0) Aspartate Amino Transferase (AST) 152 U/L (15-37) H Alanine Aminotransferase (ALT) 115 U/L (14-59) H Alkaline Phosphatase 206 U/L (46-116) H Total Protein 8.4 g/dL (6.4-8.2) H Albumin 3.6 g/dL (3.4-5.0) Albumin/Globulin Ratio 0.8 (1.0-1.7) L Lipase 75 U/L (73-393) Laboratory Tests 06/10/18 22:00 Laboratory Tests 06/10/18 22:00 EKG EKG [] Radiology/Procedures Radiology/Procedures CT scan of the abdomen and pelvis FINDINGS: Abdominal aorta is not aneurysmal. Fat-containing umbilical hernia. No intrahepatic bile duct dilation. There is some questionable mild indistinctness of fat adjacent to gallbladder. No definite peripancreatic fluid collection. Spleen is unremarkable. No left-sided hydronephrosis. Urinary bladder has minimal urine within it at time of exam. No right-sided hydronephrosis. Uterus is visualized. Multiple calcifications within the pelvis bilaterally. The appendix measures up to about 6 mm without definite adjacent inflammatory changes. IMPRESSION: 1. No evidence of bowel obstruction. 2. The appendix is near the upper limits of normal in size without definitive adjacent inflammatory changes. 3. Multiple calcifications are seen within the pelvis bilaterally and appears increased when compared to 2016. Could be secondary to phleboliths given that there is not definite more proximal hydronephrosis to suggest obstructive ureter stone.[] Course & Med Decision Making Course & Med Decision Making Pertinent Labs and Imaging studies reviewed. (See chart for details) ED course: Patient arrived, was placed in bed, tolerated exam well. After the return of the lab and imaging findings, these were discussed with the patient voiced understanding. All questions were answered. Patient was discharged in improved condition. Medical Decision-making: There is no evidence of obstruction, perforation, pancreatitis, UTI, nor acute pathology requiring intervention at this time.[] Dragon Disclaimer Dragon Disclaimer This electronic medical record was generated, in whole or in part, using a voice recognition dictation system. Departure Departure Impression: Primary Impression: Abdominal pain Disposition: HOME, SELF-CARE Condition: GOOD Referrals: NO PCP (PCP) Patient Instructions: Abdominal Pain Additional Instructions: Drink plenty of fluids. Follow-up with your regular doctor. If you do not have a regular doctor a list of local low-cost clinics is being provided for you. Return to the ER if worsening discomfort or any other concerns. Scripts Metoclopramide Hcl (REGLAN) 10 Mg Tablet 10 MG PO QIDACHS, #30 TAB 0 Refills Prov: LIBBY COLÓN DO 06/10/18 Hyoscyamine Sulfate (LEVSIN) 0.125 Mg Tablet 0.125 MG PO QID, #30 TAB Prov: LIBBY COLÓN DO 06/10/18 Problem Qualifiers Primary Impression: Abdominal pain Abdominal location: unspecified location Qualified Codes: R10.9 - Unspecified abdominal pain LIBBY COLÓN DO Jun 10, 2018 21:28
[2018-06-10 21:38] LABS: BILIRUBIN,URINE NEGATIVE (NEG); CLARITY,URINE CLEAR; COLOR,URINE YELLOW; NITRITE,URINE NEGATIVE (NEG); PH,URINE 6.5; PROTEIN,URINE NEGATIVE (NEG-TRACE)
[2018-06-10 21:44] LABS: AMORPHOUS SEDIMENT,UR PRESENT /HPF; BACTERIA,URINE 0 /HPF (0-FEW); RBC,URINE RARE /HPF (0-2); SQUAMOUS EPITHELIAL CELL,UR MOD /LPF
--- NOTE | 2018-06-10 21:49 | RAD ---
INDICATION: LEFT SIDE ABD PAIN AND BLOODY STOOL X1DAY
PRIOR SENT COMPARISON: September 2015 TECHNIQUE: Axial CT images obtained through the abdomen and pelvis without contrast. Limited assessment of solid organ structures and vasculature secondary to lack of intravenous contrast.. One or more of the following individualized dose reduction techniques were utilized for this examination: 1. Automated exposure control; 2. Adjustment of the mA and/or kV according to patient size; 3. Use of iterative reconstruction technique. FINDINGS: Abdominal aorta is not aneurysmal. Fat-containing umbilical hernia. No intrahepatic bile duct dilation. There is some questionable mild indistinctness of fat adjacent to gallbladder. No definite peripancreatic fluid collection. Spleen is unremarkable. No left-sided hydronephrosis. Urinary bladder has minimal urine within it at time of exam. No right-sided hydronephrosis. Uterus is visualized. Multiple calcifications within the pelvis bilaterally. The appendix measures up to about 6 mm without definite adjacent inflammatory changes. IMPRESSION: 1. No evidence of bowel obstruction. 2. The appendix is near the upper limits of normal in size without definitive adjacent inflammatory changes. 3. Multiple calcifications are seen within the pelvis bilaterally and appears increased when compared to 2016. Could be secondary to phleboliths given that there is not definite more proximal hydronephrosis to suggest obstructive ureter stone. Electronically signed by: Wong Otoole MD (06/10/2018 9:46 PM) [facility]
[2018-06-10] MEDS ORDERED: ONDANSETRON ODT 4 MG TAB.RAPDIS. PO ONE (22:00)
[2018-06-10] MEDS ORDERED: HYOSCYAMINE 0.125 MG TAB.RAPDIS PO ONE (22:00)
[2018-06-10 22:04] LABS: FECAL OB PT NEGATIVE (NEG)
[2018-06-10 22:19] LABS: BASO % 0 % (0-3); EOS % 0 % (0-3); HEMATOCRIT 34.4 % (36.0-47.0); HEMOGLOBIN 10.8 g/dL (12.0-15.5); LYMPH % 26 % (24-48); MEAN CORPUSCULAR HEMOGLOBIN 20 pg (25-35); MEAN CORPUSCULAR HGB CONC 31 g/dL (31-37); MEAN CORPUSCULAR VOLUME 64 fL (79-100); MONO # 0.5 x10^3/uL (0.0-1.1); MONO % 6 % (0-9); NEUT # 5.1 x10^3uL (1.8-7.7); NEUT % 67 % (31-73); PLATELET COUNT 196 x10^3/uL (140-400); RED BLOOD COUNT 5.34 x10^6/uL (3.50-5.40); RED CELL DISTRIBUTION WIDTH 16.8 % (11.5-14.5); WHITE BLOOD COUNT 7.6 x10^3/uL (4.0-11.0)
[2018-06-10 22:20] LABS: CALCIUM 9.2 mg/dL (8.5-10.1); CREATININE 0.7 mg/dL (0.6-1.0); GFR 126.6; POTASSIUM 4.1 mmol/L (3.5-5.1)
[2018-06-10 22:25] LABS: ALBUMIN 3.6 g/dL (3.4-5.0); ALBUMIN/GLOBULIN RATIO 0.8 (1.0-1.7); TOTAL BILIRUBIN 0.6 mg/dL (0.2-1.0); TOTAL PROTEIN 8.4 g/dL (6.4-8.2)
[2018-06-10 22:29] LABS: PROTHROMBIN TIME PATIENT 13.3 SEC (11.7-14.0)
[2018-06-10] MEDS ORDERED: HYOS0.1264 PO (22:34)
[2018-06-10] MEDS ORDERED: METO10TA81 PO (22:34)
[2018-06-10 22:37] VITALS: BP 141/74
[2018-06-10 22:45] LABS: PLT ESTIMATE ADEQUATE (ADEQUATE)
[2018-06-10 22:46] LABS: HELMET CELLS OCC; HYPOCHROMIA MARKED; MICROCYTOSIS MARKED; POIKILOCYTOSIS SLIGHT; SPHEROCYTES OCC; TARGET CELLS OCC; TEAR DROP CELLS OCC; TOXIC GRANULATION SLIGHT
== END 2018-06-10 23:00 | disposition home or self-care (01) ==
LOC: ER 20:59
DX: R10.84 Generalized abdominal pain (principal); K58.9 Irritable bowel syndrome, unspecified
CPT/HCPCS: 36415; 74176; 80053; 81001; 81025; 82274; 83690; 85025; 85610; 87086; 99284; Q0162

== ENCOUNTER 2020-07-05 15:33 | Emergency (ER) | payer MEDICAID, OTHER ==
[~2020-07-05] VITALS: Ht 157.5 cm; Wt 104.0 kg
[~2020-07-05 15:33] MED LIST changes: +HYOS0.1264 PO; +METO10TA81 PO
[2020-07-05 16:16] LABS: BILIRUBIN,URINE NEGATIVE (NEG); CLARITY,URINE CLEAR; COLOR,URINE YELLOW; NITRITE,URINE NEGATIVE (NEG); PH,URINE 5.5 (<5.0-8.0); PROTEIN,URINE 30 mg/dL (NEG-TRACE)
[2020-07-05 16:23] LABS: BARBITURATES NEG (NEG); BENZODIAZEPINES NEG (NEG); CANNABINOIDS NEG (NEG); COCAINE NEG (NEG); METHADONE NEG (NEG); OPIATES NEG (NEG); PHENCYCLIDINE NEG (NEG)
[2020-07-05 16:24] LABS: AMPHETAMINE/METHAMPHETAMINE NEG (NEG)
--- NOTE | 2020-07-05 16:24 | PHYS DOC ---
Past Medical History Past Medical History: IBS, Sickle Cell Disease Past Surgical History: Additional Past Surgical Histo: X 1 Smoking Status: Never Smoker Alcohol Use: None Drug Use: None General Adult EDM: Chief Complaint: ABDOMINAL PAIN IN HPI: HPI: Patient is a 25 year old female patient 3 para 2 currently 8 weeks presenting to the ED today complaining of vaginal bleeding and abdominal cramping, symptoms began yesterday. Patient reports her last menstrual cycle was May 02, 2020. Denies any nausea, vomiting. Denies any fever. Denies using more than 1 feminine pad an hour. Review of Systems: Review of Systems: Constitutional: Denies fever or chills. [] Eyes: Denies change in visual acuity. [] HENT: Denies nasal congestion or sore throat. [] Respiratory: Denies cough or shortness of breath. [] Cardiovascular: Denies chest pain or edema. [] GI: Reports abdominal cramping and vaginal bleeding in , denies nausea, vomiting, bloody stools or diarrhea. [] : Denies dysuria. [] Musculoskeletal: Denies back pain or joint pain. [] Integument: Denies rash. [] Neurologic: Denies headache, focal weakness or sensory changes. [] Psychiatric: Denies depression or anxiety. [] Heart Score: Risk Factors: Risk Factors: DM, Current or recent (<one month) smoker, HTN, HLP, family history of CAD, obesity. Risk Scores: Score 0 - 3: 2.5% MACE over next 6 weeks - Discharge Home Score 4 - 6: 20.3% MACE over next 6 weeks - Admit for Clinical Observation Score 7 - 10: 72.7% MACE over next 6 weeks - Early Invasive Strategies Allergies: Allergies: Allergies Coded Allergies Type Severity Reaction Last Updated Verified No Known Drug Allergies 07/01/14 No Physical Exam: PE: Constitutional: Well developed, well nourished, no acute distress, non-toxic appearance. [] HENT: Normocephalic, atraumatic, bilateral external ears normal, oropharynx moist, no oral exudates, nose normal. [] Eyes: PERRLA, EOMI, conjunctiva normal, no discharge. [] Neck: Normal range of motion, no tenderness, supple, no stridor. [] Cardiovascular:Heart rate regular rhythm, no murmur [] Lungs & Thorax: Bilateral breath sounds clear to auscultation [] Abdomen: Bowel sounds normal, soft, no tenderness, no masses, no pulsatile masses. [] Pelvic exam External pelvic appears normal, cervix is not well visualized due to body habitus, small amount of bright red blood noted in the vaginal vault, no CMT, no adnexal tenderness Skin: Warm, dry, no erythema, no rash. [] Back: No tenderness, no CVA tenderness. [] Extremities: No tenderness, no cyanosis, no clubbing, ROM intact, no edema. [] Neurologic: Alert and oriented X 3, normal motor function, normal sensory function, no focal deficits noted. [] Psychologic: Affect normal, judgement normal, mood normal. [] Current Patient Data: Labs: Laboratory Tests Test 07/05/20 15:46 POC Urine HCG, Qualitative Hcg positive (Negative) Vital Signs: Vital Signs Date Time Temp Pulse Resp B/P (MAP) Pulse Ox O2 Delivery O2 Flow Rate FiO2 07/05/20 15:40 98.5 98 16 148/70 (96) 99 Room Air 98.5 EKG: EKG: [] Radiology/Procedures: Radiology/Procedures: []PROCEDURE: OB <14 WKS W/TV INDICATION: Reason: vag bleeding in / Spl. Instructions: / History: COMPARISON: None. TECHNIQUE: Grayscale and color ultrasound images uterus and adnexa. Transabdominal and transvaginal images obtained. Transvaginal images were needed to better visualize structures that were limited on transabdominal imaging. FINDINGS: Uterus: 120 x 60 x 80 mm. Endometrial stripe is 28 mm. Bilateral maternal ovaries are obscured by bowel gas. IMPRESSION: * No intrauterine is identified at this time. There is a thickened endometrial stripe. It may be helpful to obtain a follow-up exam to ensure that there is appropriate development of a pole to exclude pathologic causes such as early failure or ectopic . This may also be secondary to it being too early in to detect a gestational sac. * Ovaries are obscured by bowel gas Electronically signed by: Chris Huitron MD (07/05/2020 5:02 PM) [id number] DICTATED and SIGNED BY: CHRIS HUITRON MD DATE: 07/05/20 [id number] 0 Course & Med Decision Making: Course & Med Decision Making Pertinent Labs and Imaging studies reviewed. (See chart for details) This is a 25-year-old female patient 3 para 2 currently 8 weeks presenting to the ED today with vaginal bleeding in that began yesterday. Positive urine hCG, urine analysis negative for infection. Blood group B+. CBC with a normal WBC, hemoglobin 10.1, hematocrit 32.5. Beta-hCG 3091. OB ultrasound no intrauterine is identified at this time. Thickened endometrial stripe. It may be helpful to obtain a follow-up exam to ensure that there is appropriate development of a pole to exclude pathologic causes such as early failure or ectopic . This may also be secondary to it being too early in to detect a gestational sac. Spoke with Dr. Rojas, requested patient to go home, bedrest, follow-up with OB in 1 to 2 days for beta-hCG. Dragon Disclaimer: Dragon Disclaimer: This electronic medical record was generated, in whole or in part, using a voice recognition dictation system. Departure Departure Impression: Primary Impression: Threatened miscarriage Disposition: 01 DC HOME SELF CARE/HOMELESS Condition: STABLE Referrals: NO PCP (PCP) ADAM GHOSH MD follow up in 1-2 days for blood work Patient Instructions: Threatened Miscarriage, [id number] Additional Instructions: You were evaluated in the emergency room, you have a positive urine , your beta-hCG is 3091, unfortunately your ultrasound does not show any intrauterine . Please maintain bedrest, follow-up with your NON FOOD RECEIVING CLERK in 1 to 2 days for repeat of blood work. Do not do any extraneous activities i ncluding no sex, no heavy lifting. This should be maintained until you see the NON FOOD RECEIVING CLERK, come back to the ED at any point symptoms worsen MILLY STEVE CERAMICS MACHINE OPERATOR Jul 05, 2020 16:24
[2020-07-05 16:28] LABS: BACTERIA,URINE 0 /HPF (0-FEW); RBC,URINE >40 /HPF (0-2)
--- NOTE | 2020-07-05 17:05 | RAD ---
INDICATION: Reason: vag bleeding in / Spl. Instructions: / History: COMPARISON: None. TECHNIQUE: Grayscale and color ultrasound images uterus and adnexa. Transabdominal and transvaginal images obtained. Transvaginal images were needed to better visualize structures that were limited on transabdominal imaging. FINDINGS: Uterus: 120 x 60 x 80 mm. Endometrial stripe is 28 mm. Bilateral maternal ovaries are obscured by bowel gas. IMPRESSION: * No intrauterine is identified at this time. There is a thickened endometrial stripe. It may be helpful to obtain a follow-up exam to ensure that there is appropriate development of a pole to exclude pathologic causes such as early failure or ectopic . This may als o be secondary to it being too early in to detect a gestational sac. * Ovaries are obscured by bowel gas Electronically signed by: Wong Otoole MD (07/05/2020 5:02 PM) [id number]
[2020-07-05 17:27] LABS: BASO # 0.1 x10^3/uL (0.0-0.2); BASO % 1 % (0-3); EOS # 0.2 x10^3/uL (0.0-0.7); EOS % 2 % (0-3); HEMATOCRIT 32.5 % (36.0-47.0); HEMOGLOBIN 10.1 g/dL (12.0-15.5); LYMPH # 2.2 x10^3/uL (1.0-4.8); LYMPH % 21 % (24-48); MEAN CORPUSCULAR HEMOGLOBIN 19 pg (25-35); MEAN CORPUSCULAR HGB CONC 31 g/dL (31-37); MEAN CORPUSCULAR VOLUME 61 fL (79-100); MONO # 0.6 x10^3/uL (0.0-1.1); MONO % 6 % (0-9); NEUT # 7.1 x10^3/uL (1.8-7.7); NEUT % 70 % (31-73); PLATELET COUNT 249 x10^3/uL (140-400); RED BLOOD COUNT 5.29 x10^6/uL (3.50-5.40); RED CELL DISTRIBUTION WIDTH 18.4 % (11.5-14.5); WHITE BLOOD COUNT 10.1 x10^3/uL (4.0-11.0)
[2020-07-05 17:33] LABS: CALCIUM 9.1 mg/dL (8.5-10.1); CREATININE 0.7 mg/dL (0.6-1.0); GFR 124.4; POTASSIUM 3.8 mmol/L (3.5-5.1)
[2020-07-05 17:40] LABS: ALBUMIN 3.1 g/dL (3.4-5.0); ALBUMIN/GLOBULIN RATIO 0.7 (1.0-1.7); TOTAL BILIRUBIN 0.3 mg/dL (0.2-1.0); TOTAL PROTEIN 7.7 g/dL (6.4-8.2)
[2020-07-05 18:32] LABS: PLT ESTIMATE ADEQUATE (ADEQUATE); POLYCHROMASIA SLIGHT
[2020-07-05 18:33] LABS: ANISOCYTOSIS SLIGHT; HYPOCHROMIA MARKED; MICROCYTOSIS MARKED; OVALOCYTES FEW; TARGET CELLS OCC; TEAR DROP CELLS OCC
[2020-07-05 18:34] LABS: BIZZARE CELLS OCC
[2020-07-05 19:30] VITALS: BP 138/65
== END 2020-07-05 20:12 | disposition home or self-care (01) ==
LOC: ER 15:33
DX: O20.0 Threatened abortion (principal); O99.611 Diseases of the digestive system complicating pregnancy, first trimester; K58.9 Irritable bowel syndrome, unspecified; Z3A.08 8 weeks gestation of pregnancy
CPT/HCPCS: 36415; 76801; 76817; 80053; 80307; 81001; 81025; 84702; 85025; 86850; 86900; 86901; 87086; 99285; G0480